=== PATIENT | male | born 1980 | race Caucasian/White ===

== ENCOUNTER → 2016-03-06 | Outpatient (CLI) | payer BC ==
[~2016-03-06] MED LIST: NO HOME MEDICATIONS
== END ==
LOC: COL.RAD 10:12
DX: M17.12 Unilateral primary osteoarthritis, left knee (principal); M23.42 Loose body in knee, left knee; M93.862 Other specified osteochondropathies, left lower leg; M25.562 Pain in left knee

== ENCOUNTER → 2016-09-23 | Outpatient (CLI) | payer BC | LOC: COL.VAS 09:06 | DX: I34.0 Nonrheumatic mitral (valve) insufficiency (principal); R06.09 Other forms of dyspnea ==